=== PATIENT | female | born 2000 | race Native Hawaiian/Other Pacific Islander ===

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

== ENCOUNTER 2022-03-24 21:57 | Emergency (ER) | payer OTHER ==
[~2022-03-24] VITALS: Ht 170.2 cm; Wt 126.1 kg
[2022-03-24 22:53] LABS: PLATELET COUNT 221 K/uL (152-353)
[2022-03-24 23:17] LABS: POTASSIUM 3.5 mmol/L (3.6-5.2); SODIUM 140 mmol/L (136-145)
[2022-03-25 00:38] VITALS: BP 113/65; TEMP 98.7
== END 2022-03-25 00:38 | disposition home or self-care (01) ==
LOC: ED 21:57
PROVIDERS: Hospitalist
DX: R07.89 Other chest pain (principal); R09.1 Pleurisy
CPT/HCPCS: 36415; 80053; 80320; 82550; 83880; 84484; 85027; 85379; 85610; 85730; 93005; 96374; 96375; 99284; J1885; J2930

== ENCOUNTER 2022-08-19 20:34 | Emergency (ER) | payer OTHER ==
[2022-08-19 21:49] LABS: PLATELET COUNT 250 K/uL (152-353)
[2022-08-19 23:35] VITALS: BP 135/78; TEMP 98
== END 2022-08-20 01:30 | disposition home or self-care (01) ==
LOC: ED 20:34
PROVIDERS: Emergency Medicine Emergency Medical Services
DX: N93.8 Other specified abnormal uterine and vaginal bleeding (principal)
CPT/HCPCS: 36415; 81025; 85027; 85610; 99284

== ENCOUNTER 2022-10-24 10:30 | Emergency (ER) | payer OTHER ==
[~2022-10-24] VITALS: Ht 170.2 cm; Wt 119.7 kg
[2022-10-24 10:35] VITALS: BP 110/67; TEMP 98.6
[2022-10-24 11:18] LABS: PLATELET COUNT 215 K/uL (152-353)
== END 2022-10-24 12:23 | disposition home or self-care (01) ==
LOC: ED 10:30
PROVIDERS: Emergency Medicine
DX: B34.9 Viral infection, unspecified (principal); U07.1 COVID-19
CPT/HCPCS: 80048; 81002; 81025; 85027; 87502; 87635; 99284; U0003

== ENCOUNTER 2023-03-13 11:57 | Emergency (ER) | payer OTHER ==
[~2023-03-13] VITALS: Ht 170.2 cm; Wt 119.3 kg
[2023-03-13 12:05] VITALS: BP 110/64; TEMP 98.2
== END 2023-03-13 12:34 | disposition home or self-care (01) ==
LOC: ED 11:57
DX: T19.2XXA Foreign body in vulva and vagina, initial encounter (principal)
CPT/HCPCS: 99284

== ENCOUNTER 2023-04-13 10:49 | Emergency (ER) | payer OTHER ==
[~2023-04-13] VITALS: Ht 170.2 cm; Wt 117.9 kg
[2023-04-13 10:54] VITALS: BP 122/79; TEMP 98.7
[2023-04-13 11:33] LABS: PLATELET COUNT 219 K/uL (152-353)
== END 2023-04-13 13:31 | disposition home or self-care (01) ==
LOC: ED 10:49
PROVIDERS: Family Medicine
DX: J03.90 Acute tonsillitis, unspecified (principal); R51.9 Headache, unspecified; J32.9 Chronic sinusitis, unspecified; E66.9 Obesity, unspecified; F17.290 Nicotine dependence, other tobacco product, uncomplicated
CPT/HCPCS: 85027; 87502; 87635; 87651; 99283; U0003